=== PATIENT | female | born 1950 | race Caucasian/White ===

== ENCOUNTER 2019-12-20 20:12 | Emergency (ER) | payer MEDICARE ==
[~2019-12-20] VITALS: Ht 167.6 cm; Wt 89.8 kg
[2019-12-20] MEDS ORDERED: SYNTHROID112 MC1 PO (20:40)
[2019-12-20 21:55] LABS: POTASSIUM 4.4 mmol/L (3.5-5.1)
[2019-12-20 21:59] LABS: ALBUMIN 3.7 g/dL (3.4-5.0); TOTAL BILIRUBIN 0.3 mg/dL (<0.1-1.0); TOTAL PROTEIN 7.6 g/dL (6.4-8.2)
[2019-12-20 22:06] LABS: HEMATOCRIT 42.4 % (37.0-47.0); HEMOGLOBIN 14.2 gm/dL (12.0-15.0); MCH 28.2 pg (26.0-34.0); MCHC 33.5 g/dL (28.0-37.0); MCV 84.4 fL (80.0-100.0); MPV 7.5 fl. (7.2-11.1); NUCLEATED RBCS 0 /100WBC; PLATELET COUNT* 344 thou/uL (150-400); RBC 5.02 mil/uL (4.20-5.00); RDW-CV 14.6 % (10.5-14.5); WBC 11.3 thou/uL (4.0-11.0)
[2019-12-20 22:38] LABS: ABSOLUTE EOSINOPHILS 0.2 thou/uL (0.0-0.7); ABSOLUTE LYMPHOCYTES 4.2 thou/uL (0.8-5.3); ABSOLUTE MONOCYTES 0.5 thou/uL (0.0-1.2); ABSOLUTE NEUTROPHILS 6.4 thou/uL (1.6-8.1); PLATELET ESTIMATE ADEQUATE
[2019-12-20] MEDS ORDERED: PROTONIX40 MG PO (23:55)
[2019-12-20] MEDS ORDERED: NORCO 5-325 TA1 EAC2 PO (23:55)
[2019-12-20] MEDS ORDERED: ZOFRAN ODT4 MG SUBLING (23:55)
[2019-12-21 00:21] VITALS: BP 108/67
--- NOTE | 2019-12-21 09:39 | EKG ---
[place] [address] ELECTROCARDIOGRAM REPORT Name: WINNIE ADAMS Hunter Room: [facility]#: [id number] Admission: 12/20/19 Attend Phys: Discharge: 12/21/19 Date of : 50 Date of Service: 12/20/192034 Report #: [id number] THIS REPORT FOR: //name// [facility] ED Test Date: 2019-12-20 Test Time: 20:35:55 Pat Name: WINNIE ADAMS Department: Room: Gender: Vamp Wetter: : 1950 Requested By: Aidan Cook Order Number: [id number] MD: Ubaldo Ahn Measurements Intervals [place] Rate: 90 P: 73 [place]: 189 QRS: -60 QRSD: 81 T: 36 QT: 355 QTc: 435 Interpretive Statements Sinus rhythm Probable left atrial enlargement Inferior infarct, old Baseline wander in lead(s) II,aVF No previous ECG available for comparison Electronically Signed On 12-21-2019 9:39:09 CDT by Ubaldo Ahn [email or web address] <ELECTRONICALLY SIGNED> By: Ubaldo Ahn MD, [facility] 12/21/19 0939 34 34 Ubaldo Ahn MD, [facility] /EPI
== END 2019-12-21 00:21 | disposition home or self-care (01) ==
LOC: M.ERS 20:12
PROVIDERS: Family Medicine
DX: K29.70 Gastritis, unspecified, without bleeding (principal); I10 Essential (primary) hypertension; E03.9 Hypothyroidism, unspecified; E78.00 Pure hypercholesterolemia, unspecified; J44.9 Chronic obstructive pulmonary disease, unspecified; Z79.899 Other long term (current) drug therapy

== ENCOUNTER 2020-02-18 18:49 | Emergency (ER) | payer MEDICARE ==
[~2020-02-18] VITALS: Ht 165.1 cm; Wt 93.0 kg
[~2020-02-18 18:49] MED LIST: NORCO 5-325 TA1 EAC2 PO; PROTONIX40 MG PO; SYNTHROID112 MC1 PO; ZOFRAN ODT4 MG SUBLING
[2020-02-18] MEDS ORDERED: BACLOFEN5 MG PO (19:20)
[2020-02-18 19:32] LABS: URINE BILIRUBIN NEGATIVE (Negative); URINE BLOOD NEGATIVE (Negative); URINE COLOR YELLOW; URINE GLUCOSE-RANDOM NEGATIVE (Negative); URINE KETONES NEGATIVE (Negative); URINE LEUKOCYTES-REFLEX TRACE (Negative); URINE NITRITE-REFLEX NEGATIVE (Negative); URINE PROTEIN NEGATIVE (Negative); URINE UROBILINOGEN 0.2 E.U./dl (0.2-1.0)
[2020-02-18 19:33] LABS: URINE CLARITY HAZY
[2020-02-18 19:39] LABS: SQUAMOUS >10 Many /LPF (0-3)
[2020-02-18 19:42] LABS: AMORPHOUS URATES Few /LPF (None Seen); BACTERIA-REFLEX None Seen /HPF (None Seen); CASTS None Seen /LPF (None Seen); URINE RBC None Seen /HPF (0-2); URINE WBC-REFLEX 0-5 Rare /HPF (0-5)
[2020-02-18 19:52] LABS: ABSOLUTE BASOPHILS 0.2 thou/uL (0.0-0.2); ABSOLUTE EOSINOPHILS 0.2 thou/uL (0.0-0.7); ABSOLUTE MONOCYTES 0.9 thou/uL (0.0-1.2); ABSOLUTE NEUTROPHILS 7.7 thou/uL (1.6-8.1); BASOPHILS 1.4 %; EOSINOPHILS 1.8 %; HEMATOCRIT 42.4 % (37.0-47.0); HEMOGLOBIN 14.5 gm/dL (12.0-15.0); LYMPHOCYTES 30.9 %; MCH 28.7 pg (26.0-34.0); MCHC 34.3 g/dL (28.0-37.0); MCV 83.7 fL (80.0-100.0); MONOCYTES 6.9 %; MPV 7.9 fl. (7.2-11.1); NUCLEATED RBCS 0 /100WBC; PLATELET COUNT* 371 thou/uL (150-400); RBC 5.07 mil/uL (4.20-5.00)
[2020-02-18 19:59] LABS: CALCIUM 9.3 mg/dL (8.5-10.1); CREATININE 0.8 mg/dL (0.6-1.3)
[2020-02-18 20:03] LABS: ALBUMIN 3.5 g/dL (3.4-5.0); TOTAL BILIRUBIN 0.2 mg/dL (<0.1-1.0); TOTAL PROTEIN 7.7 g/dL (6.4-8.2)
[2020-02-18 20:13] LABS: PROTIME 10.2 Seconds (9.20-11.50)
[2020-02-18] MEDS ORDERED: HYDROCODON-ACE1 EAC8 PO (23:43)
[2020-02-18] MEDS ORDERED: FLAGYL500 M1 PO (23:43)
[2020-02-18] MEDS ORDERED: CIPROFLOXACIN500 M1 PO (23:43)
[2020-02-18] MEDS ORDERED: ZOFRAN ODT4 MG PO (23:43)
[2020-02-19 00:25] VITALS: BP 137/76
--- NOTE | 2020-02-20 12:42 | EKG ---
[place] [address] ELECTROCARDIOGRAM REPORT Name: WINNIE ADAMS Room: [facility]#: [id number] Admission: 02/18/20 Attend Phys: Discharge: 02/19/20 Date of : 50 Date of Service: 02/18/201919 Report #: [id number] THIS REPORT FOR: //name// [facility] ED Test Date: 2020-02-18 Test Time: 19:20:52 Pat Name: WINNIE ADASM Department: Room: Gender: [facility] Director: ANA : 1950 Requested By: Tomeka Ellis Order Number: [id number] MD: Delbert Evans Measurements Intervals [place] Rate: 87 P: 69 [place]: 188 QRS: -38 QRSD: 80 T: 41 QT: 348 QTc: 419 Interpretive Statements Sinus rhythm Left axis deviation Compared to ECG 12/20/2019 20:35:55 Left-axis deviation now present Myocardial infarct finding no longer present Electronically Signed On 02-20-2020 12:42:33 [employer] by Delbert Eavns [email or web address] <ELECTRONICALLY SIGNED> By: Delbert Evans MD, FACC 02/20/20 1242 19 19 Delbert Evans MD, FAC /EPI
== END 2020-02-19 00:28 | disposition home or self-care (01) ==
LOC: M.ERS 18:49
PROVIDERS: Emergency Medicine
DX: K57.32 Diverticulitis of large intestine without perforation or abscess without bleeding (principal); K63.89 Other specified diseases of intestine; Z20.828 Contact with and (suspected) exposure to other viral communicable diseases; E03.9 Hypothyroidism, unspecified; E78.00 Pure hypercholesterolemia, unspecified; J44.9 Chronic obstructive pulmonary disease, unspecified